=== PATIENT | male | born 1935 | race Caucasian/White ===

== ENCOUNTER 2020-08-14 13:02 | Observation (INO) | payer MEDICARE ==
[~2020-08-14] VITALS: Ht 175.3 cm; Wt 83.9 kg
--- NOTE | 2020-08-14 13:02 | NUR ---
PATIENT TO ROOM VIA EMS STRETCHER
[2020-08-14] MEDS ORDERED: METOPROL TAR25 MG PO (13:16)
[2020-08-14] MEDS ORDERED: ALLOPURINOL100 MG PO (13:17)
[2020-08-14] MEDS ORDERED: NIFEDIPINE60 MG PO (13:17)
[2020-08-14] MEDS ORDERED: CLONIDINE0.1 MG PO (13:18)
[2020-08-14] MEDS ORDERED: FUROSEMIDE20 MG PO (13:19)
[2020-08-14] MEDS ORDERED: BENAZEPRIL10 M1 PO (13:19)
--- NOTE | 2020-08-14 14:01 | NUR ---
PT STILL REPORTING PAIN, MORE MEDS ADMINISTERED. WILL CONTINUE TO MONITOR. VITALS STABLE. AT BEDSIDE. CALL LIGHT WITHIN REACH.
[2020-08-14 14:44] LABS: HEMATOCRIT 36.8 % (39.0-50.0); HEMOGLOBIN 12.6 g/dl (14.0-18.0); IMMATURE GRANULOCYTES 0.7 % (0.0-5.0); MEAN CELL VOLUME 96.1 fL CALC (80.0-100.0); MEAN CORPUSCULAR HGB 32.9 pG CALC (26.0-32.0); MEAN CORPUSCULAR HGB CONC 34.2 g/dL CAL (32.0-36.0); NEUT# 4.72 thou/uL (1.82-7.42); RED BLOOD COUNT 3.83 mill/uL (4.70-6.10); RED CELL DISTRI WIDTH 14.5 % (11.5-15.5)
[2020-08-14 14:49] LABS: ALBUMIN 4.3 g/dL (3.2-5.0); BILIRUBIN, TOTAL 0.5 mg/dL (0.0-1.4); POTASSIUM 4.1 mmol/l (3.5-5.1)
--- NOTE | 2020-08-14 15:15 | NUR ---
PT ATTACHED TO MONITOR IN PREPARATION FOR RELOCATION OF BILATERAL SHOULDERS.
--- NOTE | 2020-08-14 15:58 | NUR ---
PROCEDURE COMPLETED, PT TOLERATED WELL. VITALS STABLE. ANESTHESIA AT BEDSIDE.
--- NOTE | 2020-08-14 16:53 | NUR ---
PT RESTING. SUTURES IN PLACE, CLEAN DRY INTACT.
--- NOTE | 2020-08-14 17:30 | NUR ---
PT RETURNED FROM RADIOLOGY, AWAITING ADMISSION. AT BEDSIDE.
--- NOTE | 2020-08-14 18:15 | NUR ---
SBAR PRINTED TO FLOOR
--- NOTE | 2020-08-14 18:44 | NUR ---
PT STABLE. PENDING ADMISSION.
--- NOTE | 2020-08-14 19:29 | NUR ---
TELEBOX [id number] IN USE. PATIENT AGREES TO PLAN FOR ADMIT. REPORT GIVEN TO ALEXANDR MARTINEZ. AWAITING TRANSPORT TO FLOOR.
[2020-08-14 20:35] VITALS: BP 116/74
--- NOTE | 2020-08-14 20:45 | NUR ---
ADMISSION ASSESS COMPLETE IN ED. PT TRANSPORTED TO [facility] VIA STRETCHER IN STABLE CONDITION. ALERT AND ORIENTED X4. NO APPARENT DISTRESS NOTED. MEDICATED FOR PAIN PRIOR TO TRANSFER WITH LITTLE EFFECT. SOLUTIONS EXECUTIVE SECURITY PHYSICIAN NOTIFIED. PT TRANSFERED FROM STRETCHER TO BED X4 PERSON ASSIST. PT TOLERATED WELL. IV SITE APPEARS HEALTHY. YAMILETH BANDAGE IN PLACE FOR DOUBLE SHOULD DISLOCATION. PT ORIENTED TO ROOM AND CALL LIGHT SYSTEM. CALL LIGHT WITHIN REACH. WILL CONTINUE TO MONITOR.
--- NOTE | 2020-08-14 20:52 | NUR ---
RAPID RESPONSE CALLED TO PT ROOM AT THIS TIME. PT REQUESTED TO AMBULATED TO BATHROOM, PT ENCOURAGED TO USE URINAL AT BEDSIDE. PT VERY PERSISITANCE ABOUT GOING TO BATHROOM. ASSISTED X2 PERSON. PT VOIDED IN TOILET WITHOUT DIFFICULTY, THEN STATED " I'M DIZZY" PT BECAME WEAK AND WAS LOWERED TO FLOOR WITHOUT INCIDENT BY ARMIDA HILL AND ARMIDA PATTERSON. PT APPEARS TO BE VERY PALE IN THE FACE. MECHANICAL LIFT WAS USED TO ASSIST PT UP OFF FLOOR BACK INTO BED. VSS. ONCE BACK INTO BED, DIZZINESS RESOLVED. GRID CASTING MACHINE OPERATOR HELPER PHYSICIAN NOTIFIED. NO NEW ORDERS AT THIS TIME. WILL CONTINUE TO MONITOR.
--- NOTE | 2020-08-14 22:17 | NUR ---
PT MEDICATED FOR SHOULDER PAIN 11/30 WITH PRN DILUADID. IV FLUIDS INITIATED. IV SITE APPEARS HEALTHY. FLUSHED WELL. PT DENIES ANY OTHER CURRENT WANTS OR NEEDS. CALL LIGHT WITHIN REACH. WILL CONTINUE MONITOR.
[2020-08-14 23:35] VITALS: BP 148/85
--- NOTE | 2020-08-15 01:08 | NUR ---
PT RESTING IN BED WITH EYES CLOSED. NO APPARENT DISTRESS NOTED. RESPIRATIONS EVEN AND UNLABORED. IVF INFUSING WITHOUT DIFFICULTY. COMMUNITY ENGAGEMENT SPECIALIST IN PLACE. CALL LIGHT WITHIN REACH. WILL CONTINUE TO MONITOR.
[2020-08-15 04:22] VITALS: BP 165/74
--- NOTE | 2020-08-15 04:28 | NUR ---
PT MEDICATED WITH PRN DILUADID FOR BILATERAL SHOULDER PAIN. ICE PACKS PROVIDED AT THIS TIME. PT DENIES ANY OTHER CURRENT WANTS OR NEEDS. CALL LIGHT WITHIN REACH. WILL CONTINUE TO MONITOR.
[2020-08-15 05:30] VITALS: BP 143/75
--- NOTE | 2020-08-15 07:00 | NUR ---
RECIEVED REPORT FROM ALEXANDR MARTINEZ
[2020-08-15 08:01] VITALS: BP 172/75
--- NOTE | 2020-08-15 08:01 | NUR ---
PT RESTING IN SEMI FOWLERS POSITION.PT IS A/O X3. ASSESSMENT AND VITALS COMPLETED.BP 172/75, HR 79, O2 95% ON ROOM AIR.REPSIRATIONS ARE EVEN AND UNLABORED WITH NO DISTRESS NOTED.LUNG SOUNDS ARE CLEAR. HEART RHYTHM IS NORMAL WITH TELE IN PLACE, SR WITH 1 AVB.BOWEL SOUNDS ARE ACTIVE. #20G EMS IN RH INFUSING IWTH IVF PER ORDER, SITE REMAINS HEALTHY AND PATENT.LACERATION TO HEAD AND RIGHT EYEBROW NOTED.PEDAL PULSES WEAK.PT COMPLAINS OF 6/10 PAIN INSHOULDERS, PT TO BE MEDICATED PER EMAR. ARMIDA DÍAZ TO ASSIST WITH BREAKFAST. PT DENIES OF ANY ADDITIONAL NEEDS AT THIS TIME.ALL SAFETY PRECAUTIONS ARE IN PLACE WITH CALL LIGHT IN REACH.WILL CONTINUE TO MONITOR.
[2020-08-15] MEDS ORDERED: PERCOCET1 TA4 PO (08:36)
--- NOTE | 2020-08-15 08:51 | NUR ---
PT AT BEDSIDE
[2020-08-15 08:54] LABS: MEAN CELL VOLUME 98.1 fL CALC (80.0-100.0); MEAN CORPUSCULAR HGB 33.3 pG CALC (26.0-32.0); RED BLOOD COUNT 2.64 mill/uL (4.70-6.10)
[2020-08-15 08:55] LABS: CREATININE 2.5 mg/dL (0.7-1.3); MAGNESIUM 1.8 mg/dL (1.6-2.3); POTASSIUM 4.6 mmol/l (3.5-5.1)
[2020-08-15 08:59] LABS: HEMATOCRIT 25.9 % (39.0-50.0); HEMOGLOBIN 8.8 g/dl (14.0-18.0)
--- NOTE | 2020-08-15 10:18 | NUR ---
ROBBIE,ANRP AT BEDSIDE
[2020-08-15 10:23] VITALS: BP 187/71
--- NOTE | 2020-08-15 10:38 | NUR ---
LAB AT BEDSIDE
[2020-08-15 10:59] LABS: HEMATOCRIT 25.6 % (39.0-50.0); HEMOGLOBIN 8.7 g/dl (14.0-18.0)
--- NOTE | 2020-08-15 11:12 | NUR ---
ot at bedside
--- NOTE | 2020-08-15 11:44 | NUR ---
PT VOMITING AT THIS TIME. PT MEDICTED WITH ZOFRAN. PT TOELRATED WELL. EXTRA PILLOWS PROVIDED. RESPIRATIONS REMAINS EVEN AND UNLABORED WITH NO DISTRESS. IVF DC PER CELESTINO AVALOS. PT RESTING IN CHAIR. BASIN PLACED INFRONT OF PT. MATERIALS CONTACTED FOR SLINGS. ALL SAFETY PREACUTIONS ARE IN PLACE WITH CALL LIGHT IN REACH. WILL CONTINUE TO MONITOR.
[2020-08-15] MEDS ORDERED: ZOFRAN4 MG/TAB PO (11:57)
[2020-08-15 12:10] VITALS: BP 163/54
--- NOTE | 2020-08-15 12:10 | NUR ---
REASSESSMENT OF BP RESULTING IN 163/54, HR 83.RESPIRATIONS ARE EVEN AND UNLABORED. TELE MONITORING IN PLACE. SLINGS APPLIED.YAMILETH WRAP REMOVED. PT INFORMED OF DC. PT DENIES OF ANY PAINS OR DISCOMFORTS AT THIS TIME.ALL SAFETY PRECAUTIONS ARE IN PLACE WITH CALL LIGHT IN REACH. WILL CONTINUE TO MONITOR.
--- NOTE | 2020-08-15 13:30 | NUR ---
DR CASTELLANOS AT BEDSIDE
--- NOTE | 2020-08-15 13:44 | NUR ---
[facility] CALLED TO ENSURE SCRIPTS WERE SENT.
--- NOTE | 2020-08-15 14:05 | NUR ---
PT AND EDUCATED ON DC INSTRUCTIONS AND NEW MEDICATIONS. BOTH REMINDED OF LAB WORK AND STOOL TO BE COMPLETED. SPECIMEN CUP AND HAT GIVEN TO PT. PT NOR EXPRESSES ANY QUESTIONS OR CONCERNS. BILATERAL SLINGS REMAINS IN PLACE.WILL CONTINUE TO MONITOR.
--- NOTE | 2020-08-15 14:10 | NUR ---
Discharge instructions given. Patient verbalizes understanding of same. Discharged in condition via Wheelchair to Home with staff. All belongings sent with pt. PT DC HOME WITH [facility] IN STABLE CONDITION ACCOMPAINED BY AND ARMIDA DÍAZ WITH ALL BELONGINGS AND DC INSTRUCTIONS.
== END 2020-08-15 14:11 | disposition home health service (06) ==
LOC: ED 13:02 → ED-I 18:02 → ED 18:16 → MS2 18:17
PROVIDERS: Emergency Medicine; Nurse Practitioner; ADMIT Internal Medicine; ATTEND Internal Medicine
PROC: 0HQ1XZZ Repair Face Skin, External Approach (ICD-10-PCS; principal; 2020-08-14)
PROC: 0RSKXZZ Reposition Left Shoulder Joint, External Approach (ICD-10-PCS; 2020-08-14)
PROC: 0RSJXZZ Reposition Right Shoulder Joint, External Approach (ICD-10-PCS; 2020-08-14)
DX: S43.015A Anterior dislocation of left humerus, initial encounter (principal); S43.014A Anterior dislocation of right humerus, initial encounter; S01.81XA Laceration without foreign body of other part of head, initial encounter; S01.112A Laceration without foreign body of left eyelid and periocular area, initial encounter; S80.212A Abrasion, left knee, initial encounter; S80.211A Abrasion, right knee, initial encounter; D64.9 Anemia, unspecified; I12.9 Hypertensive chronic kidney disease with stage 1 through stage 4 chronic kidney disease, or unspecified chronic kidney disease; N18.9 Chronic kidney disease, unspecified; M10.9 Gout, unspecified; W01.0XXA Fall on same level from slipping, tripping and stumbling without subsequent striking against object, initial encounter; Y92.009 Unspecified place in unspecified non-institutional (private) residence as the place of occurrence of the external cause; Z95.2 Presence of prosthetic heart valve; Z20.822 Contact with and (suspected) exposure to COVID-19
CPT/HCPCS: G0378

== ENCOUNTER 2020-08-20 15:32 | Emergency (ER) | payer MEDICARE ==
[~2020-08-20] VITALS: Ht 175.3 cm; Wt 81.0 kg
[~2020-08-20 15:32] MED LIST: ALLOPURINOL100 MG PO; BENAZEPRIL10 M1 PO; CLONIDINE0.1 MG PO; FUROSEMIDE20 MG PO; METOPROL TAR25 MG PO; NIFEDIPINE60 MG PO; PERCOCET1 TA4 PO; ZOFRAN4 MG/TAB PO
[2020-08-20 17:33] LABS: URINE BILIRUBIN - DIPSTICK NEGATIVE (NEGATIVE); URINE BLOOD DIPSTICK NEGATIVE (NEGATIVE); URINE COLOR YELLOW; URINE GLUCOSE - DIPSTICK NEGATIVE (NEGATIVE); URINE KETONE TRACE mg/dL (NEGATIVE); URINE LEUK ESTERASE NEGATIVE (NEGATIVE); URINE PROTEIN - DIPSTICK 100 mg/dL (NEG-TRACE); URINE UROBILINOGEN - DIPSTICK 0.2 E.U./dL (0.2)
[2020-08-20 17:34] LABS: URINE NITRITE - DIPSTICK NEGATIVE (Negative)
[2020-08-20 17:34] LABS: HEMATOCRIT 22.6 % (39.0-50.0); HEMOGLOBIN 7.4 g/dl (14.0-18.0); MEAN CELL VOLUME 102.3 fL CALC (80.0-100.0); MEAN CORPUSCULAR HGB 33.5 pG CALC (26.0-32.0); MEAN CORPUSCULAR HGB CONC 32.7 g/dL CAL (32.0-36.0); PLATELET COUNT 193 thou/uL (130-400); RED BLOOD COUNT 2.21 mill/uL (4.70-6.10); RED CELL DISTRI WIDTH 15.3 % (11.5-15.5)
[2020-08-20 17:47] LABS: ALBUMIN 3.6 g/dL (3.2-5.0); POTASSIUM 3.8 mmol/l (3.5-5.1); TOTAL PROTEIN 6.8 g/dL (6.3-8.2)
[2020-08-20 17:51] LABS: BILIRUBIN, TOTAL 1.4 mg/dL (0.0-1.4); CREATININE 4.6 mg/dL (0.7-1.3)
[2020-08-20 18:03] LABS: MANUAL DIFFERENTIAL YES
[2020-08-20 18:05] LABS: BAND 1 % (0-8)
[2020-08-20 18:06] LABS: NUCLEATED RED BLOOD CELL 3 /100WBC (0-1)
[2020-08-20 18:16] LABS: INTERNATIONAL NORMALIZED RATIO 1.2 RATIO (0.7-1.3); PROTHROMBIN TIME 12.1 SECONDS (9.0-12.5)
[2020-08-20 19:25] VITALS: BP 136/65
== END 2020-08-20 19:40 | disposition short-term general hospital (02) ==
LOC: ED 15:32
PROVIDERS: Family Medicine
PROC: 05HM33Z Insertion of Infusion Device into Right Internal Jugular Vein, Percutaneous Approach (ICD-10-PCS; principal; 2020-08-20)
DX: I21.4 Non-ST elevation (NSTEMI) myocardial infarction (principal); D64.9 Anemia, unspecified; I12.9 Hypertensive chronic kidney disease with stage 1 through stage 4 chronic kidney disease, or unspecified chronic kidney disease; N18.9 Chronic kidney disease, unspecified; S80.212D Abrasion, left knee, subsequent encounter; S80.211D Abrasion, right knee, subsequent encounter; S40.012D Contusion of left shoulder, subsequent encounter; S40.022D Contusion of left upper arm, subsequent encounter; S50.12XD Contusion of left forearm, subsequent encounter; S50.11XD Contusion of right forearm, subsequent encounter; S43.005D Unspecified dislocation of left shoulder joint, subsequent encounter; S43.004D Unspecified dislocation of right shoulder joint, subsequent encounter; W19.XXXD Unspecified fall, subsequent encounter; Z95.2 Presence of prosthetic heart valve; Z20.822 Contact with and (suspected) exposure to COVID-19
CPT/HCPCS: J1644